=== PATIENT | male | born 1985 | race Caucasian/White ===

== ENCOUNTER 2016-12-20 22:53 | Emergency (ER) | payer OTHER ==
[~2016-12-20] VITALS: Ht 172.7 cm; Wt 86.2 kg
--- NOTE | 2016-12-20 23:00 | NUR ---
PATIENT IS A [employer] WHO WAS MIXING A COCKTAIL WHEN A GLASS BROKE AND LACERATED RIGHT HAND, PT ALERT, ORIENTED X 3, NO RESP DISTRESS NOTED OR REPORTED UPON ASSESSMENT... MD AT BEDSIDE...
[2016-12-20] MEDS ORDERED: LIDOCAINE HCL 1% 20 ML VIAL TP ONE (23:15)
[2016-12-20] MEDS ORDERED: ONDANSETRON HCL 4 MG TABLET PO ONE (23:15)
[2016-12-20] MEDS ORDERED: NEOMY/BACITRA/POLYMYXIN B OINT UD PACKET TP ONE ×2 (23:15→23:17)
[2016-12-20] MEDS ORDERED: TDAP DIPH,PERTUSS,TET VAC/PF 0.5 ML DISP.SYRIN IM ONE ×2 (23:15→23:17)
[2016-12-20] MEDS ORDERED: HYDROMORPHONE 1 MG/1 ML DISP.SYRIN IM ONE (23:15)
[2016-12-20] MEDS ORDERED: HYDROMORPHONE 1 MG/1 ML DISP.SYRIN ONE (23:17)
[2016-12-20] MEDS ORDERED: ONDANSETRON ODT 4 MG TAB.RAPDIS ONE (23:17)
--- NOTE | 2016-12-21 00:45 | NUR ---
Patient discharged to home in stable conditon. Written and verbal after care instructions given. Patient verbalizes understanding of instructions. PT WALKED OUT OF ER UNASSISTED... BELONGINGS AT SIDE...
[2016-12-21 01:13] VITALS: BP 121/89
[2016-12-22] MEDS ORDERED: IBUP800T54 PO (08:42)
== END 2016-12-21 01:14 | disposition home or self-care (01) ==
LOC: ER 22:54
DX: M79.641 Pain in right hand (principal); S61.212A Laceration without foreign body of right middle finger without damage to nail, initial encounter; S61.411A Laceration without foreign body of right hand, initial encounter; W25.XXXA Contact with sharp glass, initial encounter; Y93.89 Activity, other specified; Y92.69 Other specified industrial and construction area as the place of occurrence of the external cause; Y99.0 Civilian activity done for income or pay
CPT/HCPCS: 73130; 90715; A4217; A4663; J1170; J3490; Q0162

== ENCOUNTER 2016-12-22 08:31 | Emergency (ER) | payer SELFPAY ==
[~2016-12-22] VITALS: Ht 182.9 cm; Wt 90.7 kg
[2016-12-22] MEDS ORDERED: IBUP800T54 PO (08:42)
[2016-12-22] MEDS ORDERED: IBUPROFEN 600 MG TABLET PO ONE (09:15)
[2016-12-22] MEDS ORDERED: IBUPROFEN 600 MG TABLET ONE (09:29)
--- NOTE | 2016-12-22 09:47 | NUR ---
PT WAS EVALUATED BY DR MELO. PT WAS D/C TO HOME AFTER DRESSING CHANGE AND WOUND EVALUATION. D/C INSTRUCTIONS GIVEN TO THE PT.
[2016-12-22 09:48] VITALS: BP 132/75
== END 2016-12-22 09:50 | disposition home or self-care (01) ==
LOC: ER 08:31
DX: S61.411D Laceration without foreign body of right hand, subsequent encounter (principal); X58.XXXD Exposure to other specified factors, subsequent encounter; Y99.8 Other external cause status; Y92.89 Other specified places as the place of occurrence of the external cause
CPT/HCPCS: 99283; A4217; A4663

== ENCOUNTER 2016-12-24 08:39 | Emergency (ER) | payer OTHER ==
[~2016-12-24] VITALS: Ht 177.8 cm; Wt 87.1 kg
[~2016-12-24 08:39] MED LIST: IBUP800T54 PO
[2016-12-24] MEDS ORDERED: HYDR-552 PO (08:55)
--- NOTE | 2016-12-24 09:18 | NUR ---
Patient discharged to home in stable conditon. Written and verbal after care instructions given to patient. Patient verbalizes understanding of instructions.
== END 2016-12-24 09:19 | disposition home or self-care (01) ==
LOC: ER 08:39
DX: S61.411D Laceration without foreign body of right hand, subsequent encounter (principal); W25.XXXD Contact with sharp glass, subsequent encounter; Y99.8 Other external cause status; Y92.89 Other specified places as the place of occurrence of the external cause
CPT/HCPCS: 99283; A4663

== ENCOUNTER 2016-12-27 09:27 | Emergency (ER) | payer SELFPAY ==
[~2016-12-27] VITALS: Ht 185.4 cm; Wt 86.2 kg
[~2016-12-27 09:27] MED LIST changes: +HYDR-552 PO
--- NOTE | 2016-12-27 10:03 | NUR ---
Patient discharged to home in stable conditon. Written and verbal after care instructions given to patient. Patient verbalizes understanding of instructions.
== END 2016-12-27 10:04 | disposition home or self-care (01) ==
LOC: ER 09:27
DX: S61.411D Laceration without foreign body of right hand, subsequent encounter (principal); X58.XXXD Exposure to other specified factors, subsequent encounter
CPT/HCPCS: A4663

== ENCOUNTER 2017-01-04 10:05 | Emergency (ER) | payer SELFPAY ==
[~2017-01-04] VITALS: Ht 177.8 cm; Wt 86.2 kg
--- NOTE | 2017-01-04 10:19 | NUR ---
pending discharge papers at this time
--- NOTE | 2017-01-04 11:03 | NUR ---
Patient discharged to home in stable conditon. Written and verbal after care instructions given to patient. Patient verbalizes understanding of instructions. Patient is not cleared to go back to work by our ER doctor.
== END 2017-01-04 11:05 | disposition home or self-care (01) ==
LOC: ER 10:05
DX: S61.411D Laceration without foreign body of right hand, subsequent encounter (principal); Z79.899 Other long term (current) drug therapy; X58.XXXD Exposure to other specified factors, subsequent encounter; Y92.89 Other specified places as the place of occurrence of the external cause; Y99.8 Other external cause status
CPT/HCPCS: 99281; A4663

== ENCOUNTER 2024-11-12 15:38 | Emergency (ER) | payer OTHER ==
[~2024-11-12] VITALS: Ht 180.3 cm; Wt 82.6 kg
[~2024-11-12 15:38] MED LIST changes: +HYDR-4384 PO; -HYDR-552 PO
[2024-11-12] MEDS ORDERED: KETOROLAC TROMETHAMINE 15 MG INJ ONE (15:56)
[2024-11-12] MEDS ORDERED: LIDOCAINE 5% PATCH TD ONE (15:56)
[2024-11-12] MEDS: LIDOCAINE 5% PATCH TD ONE (15:59)
[2024-11-12] MEDS: KETOROLAC TROMETHAMINE 15 MG INJ IM ONE (15:59)
[2024-11-12] MEDS ORDERED: CYCL5TAB PO (16:03)
[2024-11-12] MEDS ORDERED: LIDO30AD10 TP (16:03)
[2024-11-12] MEDS ORDERED: IBUP-1955 PO (16:03)
[2024-11-12] MEDS ORDERED: METH4TAB21 PO (16:03)
[2024-11-12 16:12] VITALS: BP 154/99; O2SAT 98
== END 2024-11-12 16:15 | disposition home or self-care (01) ==
LOC: ER 15:50
DX: M54.50 Low back pain, unspecified (principal); F19.10 Other psychoactive substance abuse, uncomplicated; Z88.7 Allergy status to serum and vaccine; Z87.2 Personal history of diseases of the skin and subcutaneous tissue
CPT/HCPCS: 99283; 96372; J1885; A4606; A4663